=== PATIENT | male | born 1990 | race American Indian/Alaskan Native ===

== ENCOUNTER 2019-12-07 15:20 | Emergency (ER) | payer SELFPAY ==
[2019-12-07 16:52] VITALS: BP 118/78
--- NOTE | 2019-12-07 16:54 | Emergency Department Report ---
Upper Respiratory HPI - HPI Chief Complaint: Upper Respiratory Infection Stated Complaint: ALLERGIE FLARE UP Time Seen by Provider: 12/07/19 16:49 URI Symptoms: Rhinorrhea: Yes, Sore Throat: No, Ear Pain: No, Cough: No, Shortness of Breath: No, Sick Contacts: No, Unable to Take Fluids: No, Urine Output Abnormal: No, Listless Behavior: No Other History: This is a 29-year-old male nontoxic well in appearnce with no signs of distress presents with rhinnorrhea x1 week. Patient denies any chest pain, cough, shortness of breathe, fever, chills, nausea, vomiting, headache, stiff neck, abdominal pain, numbness or tingling. Patient denies any recent travels, long car rides, or recent hospital stays. Denies any allergies or significant PMH. ED Review of Systems ROS: Stated complaint: ALLERGIE FLARE UP Other details as noted in HPI Constitutional: denies: chills, fever Eyes: denies: eye pain, eye discharge, vision change ENT: congestion. denies: ear pain, throat pain Respiratory: denies: cough, shortness of breath, wheezing Cardiovascular: denies: chest pain, palpitations Endocrine: no symptoms reported Gastrointestinal: denies: abdominal pain, nausea, diarrhea Genitourinary: denies: urgency, dysuria Musculoskeletal: denies: back pain, joint swelling, arthralgia Skin: denies: rash, lesions Neurological: denies: headache, weakness, paresthesias Psychiatric: denies: anxiety, depression Hematological/Lymphatic: denies: easy bleeding, easy bruising ED Bronchiolitis Physical Exam - Exam General: Vital signs noted. No distress. Alert and acting appropriately. HEENT: No Pharyngeal Erythema, No Conjuctival Injection, No Dry Mucous Membranes, No Rhinorrhea Ear: Neither TM Bulge, Neither TM Erythema, Neither EAC Discharge Neck: No Adenopathy, No Rigidity Lungs: Yes Clear Lung Sounds, Yes Good Air Exchange, No Wheezes, No Stridor, No Cough, No Nasal Flaring, No Retractions, No Use of Accessory Muscles Heart: Yes Regular, No Murmur Abdomen: Yes Normal Bowel Sounds, No Tenderness, No Peritoneal Signs Skin: No Rash, No Eczema Neurologic: Alert and oriented, no deficits. Musculoskeletal: Unremarkable. ED Physical Exam - General Limitations: No Limitations ED Course - Reevaluation(s) Reevaluation #1: 12/07/19 16:53 Patient is speaking in full sentences with no signs of distress noted. ED Medical Decision Making - Medical Decision Making 29-year-old male that presents with allergic rhinnitis. Patient is stable and was examined by me. Patient was educated on OTC suppurative care and medications. Vital signs are stable. Patient was instructed to Follow-up with a primary care doctor in 3-5 days or if symptoms worsen and continue return to emergency room as soon as possible. At time of discharge, the patient does not seem toxic or ill in appearance. No acute signs of distress noted. Patient agrees to discharge treatment plan of care. No further questions noted by the patient. Critical care attestation.: If time is entered above; I have spent that time in minutes in the direct care of this critically ill patient, excluding procedure time. ED Disposition Clinical Impression: Allergic rhinitis Qualifiers: Allergic rhinitis trigger: pollen Allergic rhinitis seasonality: seasonal Qualified Code(s): J30.1 - Allergic rhinitis due to pollen Disposition: MED SCREENING EXAM-LEFT Is pt being admited?: No Does the pt Need Aspirin: No Condition: Stable Instructions: Allergic Rhinitis (ED) Additional Instructions: Follow-up with a primary care doctor in 3-5 days or if symptoms worsen and continue return to emergency room as soon as possible. Referrals: PRIMARY MD [facility] [Referring] - 3-5 Days HELEN SUNSHINE MD [Staff Physician] - 3-5 Days [facility] [Provider Group] - 3-5 Days
== END 2019-12-07 18:36 | disposition left against medical advice (07) ==
LOC: ED 15:20
DX: J30.1 Allergic rhinitis due to pollen (principal)
CPT/HCPCS: 99281

== ENCOUNTER 2019-12-10 07:31 | Emergency (ER) | payer SELFPAY ==
[2019-12-10 07:45] VITALS: BP 112/76
--- NOTE | 2019-12-10 09:55 | Emergency Department Report ---
Minor Respiratory - HPI Chief Complaint: Upper Respiratory Infection Stated Complaint: CHEST PAIN, SOBB, TIGHTNESS Time Seen by Provider: 12/10/19 09:26 Duration: 1 Day Severity: mild Minor Respiratory: Yes Cough, No Rhinorrhea, No Sore Throat, No Able to Tolerate Fluids, No Ear Pain, No Sick Contacts, No Hemoptysis, No Chest Pain, No Shortness of Breath, No Fever Other History: 29-year-old -[place] male presents to the emergency room for cough and shortness of breath that started last night. Patient states he has no fever, runny nose, sneezing, watery eyes or sore throat. Patient reports he has been taking [id number] Flonase and Claritin for the last 4 days without much help. ED Review of Systems ROS: Stated complaint: CHEST PAIN, SOBB, TIGHTNESS Other details as noted in HPI Comment: All other systems reviewed and negative ED Past Medical Hx - Past Medical History Previous Medical History?: Yes Additional medical history: seasonal allergies, pleuritis - Surgical History Past Surgical History?: No - Social History Smoking Status: Never Smoker Substance Use Type: Marijuana Minor Respiratory Exam - Exam General: Vital signs noted. No distress. Alert and acting appropriately. HEENT: Yes Moist Mucous Membranes, No Pharyngeal Erythema, No Pharyngeal Exudates, No Rhinorrhea, No Conjuctival Injection, No Frontal Tenderness, No Maxillary Tenderness Ear: Neither TM Bulge, Neither TM Erythema, Neither EAC Pain, Neither EAC Discharge Neck: Yes Supple, No Adenopathy Lungs: Yes Good Air Exchange, No Wheezes, No Ronchi, No Stridor, No Cough, No Labored Respirations, No Retractions, No Use of Accessory Muscles, No Other Abnormal Lung Sounds Heart: Yes Regular, No Murmur Skin: No Rash, No Edema Neurologic: Alert and oriented, no deficits. Musculoskeletal: Unremarkable. ED Course Vital Signs 12/10/19 07:43 Temperature 98.4 F Pulse Rate 80 Respiratory 16 Rate Blood Pressure 112/76 O2 Sat by Pulse 98 Oximetry ED Medical Decision Making - Radiology Data Radiology results: report reviewed Referring Physician:ALEJANDRINA OROZCOPatient Name:MERCEDES KNOXPatient ID:[id number] of :[id number]:MaleAccession:[id number] Date:[id number] Status:Finalized Findings [facility] [address] [place] [address] XRay Report Signed Patient: MERCEDES KONX MR#: [id number] : 1990 Acct:[id number] Age/Sex: 29 / M ADM Date: 12/10/19 Loc: ED Attending Dr: Ordering Physician: EZEKIEL SIERRA Date of Service: 12/10/19 Procedure(s): XR chest routine 2V Accession Number(s): [id number] cc: EZEKIEL SIERRA Fluoro Time In Minutes: CHEST 2 VIEWS INDICATION / CLINICAL INFORMATION: sob,cough. COMPARISON: None available. FINDINGS: SUPPORT DEVICES: None. HEART / MEDIASTINUM: No significant abnormality. LUNGS / PLEURA: No significant pulmonary or pleural abnormality. No pneumothorax. ADDITIONAL FINDINGS: No significant additional findings. IMPRESSION: No significant abnormality Signer Name: Fran Nelson MD FACR Signed: 12/10/2019 10:15 AM Workstation Name: [email or web address] Transcribed By: MS Dictated By: Fran Nelson MD Electronically Authenticated By: Fran Nelson MD Signed Date/Time: 12/10/19 1015 DD/ 1014 TD/TT: - Medical Decision Making 29-year-old -[place] male presents to the emergency room for cough and shortness of breath that started last night. Patient states he has no fever, runny nose, sneezing, watery eyes or sore throat. Patient reports he has been taking [id number] Flonase and Claritin for the last 4 days without much help. Chest x-ray ordered. Chest x-ray shows no acute abnormalities. Continue taking Claritin with her Flonase and follow-up with her primary care provider. Critical care attestation.: If time is entered above; I have spent that time in minutes in the direct care of this critically ill patient, excluding procedure time. ED Disposition Clinical Impression: Allergic rhinitis Qualifiers: Allergic rhinitis trigger: unspecified Allergic rhinitis seasonality: seasonal Qualified Code(s): J30.2 - Other seasonal allergic rhinitis Disposition: DC- TO HOME OR SELFCARE Is pt being admited?: No Does the pt Need Aspirin: No Condition: Stable Instructions: Allergic Rhinitis (ED) Additional Instructions: Chest x-ray shows no acute abnormalities. Continue taking Claritin with her Flonase and follow-up with her primary care provider. Referrals: PRIMARY CARE, [Primary Care Provider] - 3-5 Days Forms: Work/School Release Form(ED)
--- NOTE | 2019-12-10 10:19 | XRay Report ---
CHEST 2 VIEWS INDICATION / CLINICAL INFORMATION: sob,cough. COMPARISON: None available. FINDINGS: SUPPORT DEVICES: None. HEART / MEDIASTINUM: No significant abnormality. LUNGS / PLEURA: No significant pulmonary or pleural abnormality. No pneumothorax. ADDITIONAL FINDINGS: No significant additional findings. IMPRESSION: No significant abnormality Signer Name: Fran Nelson MD FACR Signed: 12/10/2019 10:15 AM Workstation Name: [id number]
== END 2019-12-10 10:33 | disposition home or self-care (01) ==
LOC: ED 07:31
DX: J30.9 Allergic rhinitis, unspecified (principal); R09.1 Pleurisy; F12.10 Cannabis abuse, uncomplicated
CPT/HCPCS: 71046

== ENCOUNTER 2020-05-26 04:37 | Emergency (ER) | payer SELFPAY ==
[2020-05-26 04:48] VITALS: BP 108/60
== END 2020-05-26 07:32 ==
LOC: ED 04:37
DX: R51 Headache (principal); Z53.21 Procedure and treatment not carried out due to patient leaving prior to being seen by health care provider